=== PATIENT | male | born 1950 | race Caucasian/White ===

== ENCOUNTER → 2017-01-28 | Outpatient (CLI) | payer MEDICARE ==
--- NOTE | 2017-01-28 17:44 | US ---
EXAMINATION TYPE: US thyroid st tissue head/neck DATE OF EXAM: 01/28/2017 5:04 PM COMPARISON: 04/13/2016 CLINICAL HISTORY: E04.9 Nontoxic goiter unspecified. Follow up thyroid nodules GLAND SIZE: Right Lobe: 4.9 x 2.1 x 1.8 cm Overall Parenchyma: homogenous Left Lobe: 4.5 x 1.9 x 1.6 cm Overall Parenchyma: homogeneous Isthmus Thickness: 0.4 cm NODULES RIGHT: # of nodules measured on right: 2 1. 0.7 X 0.5 x 0.6 cm hypoechoic solid nodule at the mid pole with poorly defined margins. This nod ule is wider than tall and shows no intranodular vascularity. Prior size: 0.6 x 0.6 x 0.4 cm 2. 0.5 X 0.3 x 0.3 cm hypoechoic mixed nodule at the mid pole with well-defined margins. This nodule is wider than tall and shows no intranodular vascularity. Prior size: no previous LEFT: # of nodules measured on left: 2 1. 1.0 X 0.5 x 0.7 cm hypoechoic mixed nodule at the upper pole with well-defined margins. This nod ule is wider than tall and shows no intranodular vascularity. Prior size: 0.6 x 0.6 x 0.5 cm 2. 0.5 X 0.4 x 0.4 cm hypoechoic mixed nodule at the upper pole with well-defined margins. This nodu le is wider than tall and shows no intranodular vascularity. Prior size: 0.5 x 0.4 x 0.4 cm ISTHMUS: # of nodules measured in the isthmus: 1 1. 0.5 X 0.3 x 0.4 cm hypoechoic mixed nodule at the mid pole with well-defined margins. This nodul e is wider than tall and shows no intranodular vascularity. Prior size: no previous Multiple bilateral thyroid nodules with largest described above, bilateral neck scanned, no evidence of lymphadenopathy. IMPRESSION: Bilateral findings. No dominant thyroid mass. There is overall no adverse change compared to old exam .
== END | disposition home or self-care (01) ==
LOC: RADUSWWP 16:40
PROVIDERS: ATTEND Family Medicine
DX: E04.9 Nontoxic goiter, unspecified (principal)
CPT/HCPCS: 76536

== ENCOUNTER → 2017-07-28 | Outpatient (CLI) | payer MEDICARE ==
--- NOTE | 2017-07-28 17:20 | US ---
EXAMINATION TYPE: US thyroid st tissue head/neck DATE OF EXAM: 07/28/2017 COMPARISON: 01/28/2017 CLINICAL HISTORY: E04.9 Nontoxic goiter. GLAND SIZE: Right Lobe: 4.7x 2.0 x 2.0 cm Overall Parenchyma: homogenous Left Lobe: 5.0 x 2.0 x 2.0 cm Overall Parenchyma: homogeneous Isthmus Thickness: 0.7 cm NODULES RIGHT: # of nodules measured on right: 2 1. 0.7 X 0.5 x 0.6 cm hypoechoic solid nodule at the mid pole with poorly defined margins. This no dule is taller than wide and shows peripheral vascularity. Prior size: 0.7 x 0.5 x 0.6 cm 2. 0.4 X 0.3 x 0.2 cm hypoechoic mixed nodule at the mid medial pole with well-defined margins; inte rrupted peripheral calcification. This nodule is wider than tall and shows no intranodular vasculari ty. Prior size: 0.5 x 0.3 x 0.3 cm LEFT: # of nodules measured on left: 3 1. 0.8 X 0.7 x 0.6 cm hypoechoic mixed nodule at the upper pole with well-defined margins; present with microcalcifications. This nodule is wider than tall and shows no intranodular vascularity. Prior size: 1.0 x 0.5 x 0.7 cm 2. 0.4 X 0.4 x 0.4 cm hypoechoic cystic nodule at the upper mid pole with well-defined margins. Thi s nodule is wider as is tall and shows no intranodular vascularity. Prior size: 0.5 x 0.4 x 0.4 cm 3. 0.4 X 0.4 x 0.3 cm hypoechoic mixed nodule at the mid medial pole with poorly defined margins; pr esent with microcalcifications. This nodule is wider than tall and shows no intranodular vascularity . Prior size: not seen ISTHMUS: # of nodules measured in the isthmus: 1 1. 0.5 X 0.4 x 0.3 cm hypoechoic mixed nodule at the lower isthmus with well-defined margins. This nodule is wider than tall and shows no intranodular vascularity. Prior size: 0.5 x 0.3 x 0.4 cm Bilateral neck scanned, no evidence of lymphadenopathy. IMPRESSION: Enlarged thyroid gland with multiple findings consistent with multiply nodular goiter. No dominant th yroid mass. No adverse change compared to old exam.
== END | disposition home or self-care (01) ==
LOC: RADUSWWP 16:06
PROVIDERS: ATTEND Family Medicine
DX: E04.9 Nontoxic goiter, unspecified (principal)
CPT/HCPCS: 76536

== ENCOUNTER → 2018-02-02 | Outpatient (CLI) | payer MEDICARE ==
--- NOTE | 2018-02-02 10:22 | US ---
EXAMINATION TYPE: US thyroid st tissue head/neck DATE OF EXAM: 02/02/2018 COMPARISON: Prior thyroid ultrasound July 28, 2017 CLINICAL HISTORY: Nontoxic Goiter E04.9. F/U nodules GLAND SIZE: Right Lobe: 4.8 x 2.5 x 2.2 cm Overall Parenchyma: homogenous Left Lobe: 5.0 x 2.0 x 1.7 cm Overall Parenchyma: homogeneous Isthmus Thickness: 0.5 cm NODULES RIGHT: # of nodules measured on right: 2 1. 0.6 X 0.5 x 0.6 cm isoechoic solid nodule at the mid pole with poorly defined margins; This nod ule is wider than tall and shows intranodular vascularity. Prior size: 0.7 x 0.5 x 0.6 cm 2. 0.4 X 0.3 x 0.4 cm hypoechoic mixed nodule at the mid pole with well-defined margins; This nodule is wider than tall and shows no intranodular vascularity. Prior size: 0.4 x 0.3 x 0.2 cm LEFT: # of nodules measured on left: 2 1. 0.9 X 0.6 x 0.7 cm hypoechoic mixed nodule at the upper pole with well-defined margins; This nod ule is wider than tall and shows intranodular vascularity. Prior size: 0.8 x 0.6 x 0.7 cm 2. 0.6 X 0.4 x 0.6 cm hypoechoic cystic nodule at the mid pole with well-defined margins; This nodu le is wider than tall and shows no intranodular vascularity. Prior size: 0.4 x 0.4 x 0.4 cm ISTHMUS: # of nodules measured in the isthmus: 1 1. 0.4 X 0.4 x 0.4 cm hypoechoic nodule with well-defined margins; This nodule is wider than tall a nd shows no intranodular vascularity. Prior size: 0.5 x 0.4 x 0.3 cm Bilateral neck scanned, no evidence of lymphadenopathy. Stable nodules bilaterally. Homogeneous normal-sized thyroid with scattered small nodules redemonstrated. No significant change i n identified nodules. No new suspicious nodules seen. IMPRESSION: Overall stable findings.
== END | disposition home or self-care (01) ==
LOC: RADUSWWP 09:30
PROVIDERS: ATTEND Family Medicine
DX: E04.9 Nontoxic goiter, unspecified (principal)
CPT/HCPCS: 76536

== ENCOUNTER → 2019-01-24 | Outpatient (CLI) | payer MEDICARE ==
--- NOTE | 2019-01-24 09:20 | US ---
EXAMINATION TYPE: US thyroid st tissue head/neck DATE OF EXAM: 01/24/2019 COMPARISON: US 02/02/2018 CLINICAL HISTORY: 68-year-old male E04.9 Nontoxic Goiter. Follow up TECHNIQUE: Multiple sonographic images of the thyroid gland are obtained. FINDINGS: GLAND SIZE: Right Lobe: 5.4 x 2.4 x 1.8 cm Overall Parenchyma: heterogenous Left Lobe: 5.1 x 2.1 x 1.7 cm Overall Parenchyma: heterogeneous Isthmus Thickness: 0.8 cm NODULES RIGHT: # of nodules measured on right: 1 1. 0.5 X 0.6 x 0.6 cm isoechoic solid nodule at the mid pole with poorly defined margins; . This n odule is wider than tall and shows intranodular vascularity. Prior size: 0.6 X 0.5 x 0.6 cm, stable LEFT: # of nodules measured on left: 2 1. 1.0 x 0.7x 1.0cm cystic nodule with internal nodularity at the upper pole with well-defined terri ns. This nodule is wider than tall and shows intranodular vascularity. Prior size: 0.9 X 0.6 x 0.7 cm, slightly larger now. 2. 0.7 x 0.3 x 0.4 cm hypoechoic cystic nodule at the mid pole with well-defined margins. This nodul e is wider than tall and shows no intranodular vascularity. Prior size: 0.6 X 0.4 x 0.6 cm, not significantly changed. ISTHMUS: # of nodules measured in the isthmus: 1 1. 0.5 X 0.4 x 0.4 cm hypoechoic cystic nodule at the lower pole with well-defined margins; . This nodule is wider than tall and shows no intranodular vascularity. Prior size: 0.4 X 0.4 x 0.4 cm , not significantly changed. Bilateral neck scanned, no evidence of lymphadenopathy. IMPRESSION: 1. Multinodular goiter. 2. The 10 x 10 mm complex nodule in the left upper lobe is cystic with an internal area of nodularity and slightly increased from 9 x 7 mm, previously. Continued follow-up recommended. If continued enla rgement, FNA can be performed. 3. Other nodules measuring up to 7 mm are not significantly changed.
== END | disposition home or self-care (01) ==
LOC: RADUSWWP 08:11
PROVIDERS: ATTEND Family Medicine
DX: E04.2 Nontoxic multinodular goiter (principal)
CPT/HCPCS: 76536

== ENCOUNTER → 2019-08-14 | Outpatient (CLI) | payer MEDICARE ==
--- NOTE | 2019-08-14 22:34 | US ---
EXAMINATION TYPE: US thyroid st tissue head/neck DATE OF EXAM: 08/14/2019 COMPARISON: Thyroid ultrasound February 05, 2019 CLINICAL HISTORY: E04.9 Nontoxic goiter, unspecified. Thyroid nodule GLAND SIZE: Right Lobe: 5.6 x 1.6 x 2.0 cm Overall Parenchyma: homogenous Left Lobe: 4.3 x 1.8 x 1.6 cm Overall Parenchyma: homogeneous Isthmus Thickness: .3 cm NODULES RIGHT: # of nodules measured on right: 1 1. .6 X .4 x .5 cm isoechoic solid nodule at the mid pole with well-defined margins; . This nodule is wider than tall and shows intranodular vascularity. Prior size: .5 x .6 x .6 cm LEFT: # of nodules measured on left: 2 1. .3 X .5 x .6 cm mixed nodule at the mid pole with well-defined margins; . This nodule is wider than tall and shows no intranodular vascularity. Prior size: .6 x .5 x .6 cm 2. .4 X .4 x .5 cm cystic nodule at the mid to upper pole with well-defined margins; . This nodule is wider than tall and shows intranodular vascularity. Prior size: 1.0 x .7 x 1.0 cm ISTHMUS: # of nodules measured in the isthmus: 0 Bilateral neck scanned, no evidence of lymphadenopathy. Homogeneous normal-sized thyroid with stable scattered small subcentimeter nodules bilaterally. IMPRESSION: Overall stable findings, no new greater than 1 cm or enlarging nodules identified.
== END | disposition home or self-care (01) ==
LOC: RADUSMAIN 17:50
PROVIDERS: ATTEND Family Medicine
DX: E04.9 Nontoxic goiter, unspecified (principal)
CPT/HCPCS: 76536

== ENCOUNTER → 2019-11-27 | Outpatient (CLI) | payer MEDICARE | END | disposition home or self-care (01) | LOC: LABPAT 07:06 | PROVIDERS: ATTEND Orthopaedic Surgery Sports Medicine | DX: Z53.9 Procedure and treatment not carried out, unspecified reason (principal) ==

== ENCOUNTER → 2019-11-27 | Outpatient (CLI) | payer MEDICARE ==
[2019-11-27 07:44] LABS: HCT 46.7 % (39.0-53.0); HGB 15.5 gm/dL (13.0-17.5); MCH 30.2 pg (25.0-35.0); MCHC 33.3 g/dL (31.0-37.0); MCV 90.8 fL (80.0-100.0); Mean Platelet Volume 7.5; Platelet Count 246 k/uL (150-450); RBC 5.15 m/uL (4.30-5.90); RDW 12.6 % (11.5-15.5)
[2019-11-27 07:54] LABS: INR 1.1 (<1.2); Prothrombin Time 11.1 sec (9.0-12.0)
[2019-11-27 08:25] LABS: Appearance,Urine Clear (Clear); Bilirubin,Urine Negative (Negative); Blood,Urine Negative (Negative); Color,Urine Yellow; Glucose,Urine (UA) Negative (Negative); Ketones,Urine Negative (Negative); Leukocyte Esterase,Urine Negative (Negative); Nitrite,Urine Negative (Negative); Protein,Urine Negative (Negative); Specific Gravity,Urine 1.012 (1.001-1.035); Urobilinogen,Urine <2.0 mg/dL (<2.0)
[2019-11-27 11:00] LABS: African American GFR (CKD) 70.6 (60.0-200.0); Albumin 4.1 g/dL (3.80-4.90); Albumin/Globulin Ratio 1.58 (1.60-3.17); Anion Gap 7.7 mmol/L (4.00-12.00); BUN/Creat Ratio 12.5 Ratio (12.00-20.00); Calcium 9.3 mg/dL (8.7-10.3); Carbon Dioxide 28.3 mmol/L (21.6-31.8); Globulin 2.6 g/dL (1.6-3.3); Non-African American GFR(CKD) 60.9 (60.0-200.0); Potassium 4.1 mmol/L (3.5-5.5); Total Bilirubin 0.9 mg/dL (0.3-1.2); Total Protein 6.7 g/dL (6.2-8.2)
== END | disposition home or self-care (01) ==
LOC: LABWHC1 07:09
PROVIDERS: ATTEND Family Medicine
DX: N40.1 Benign prostatic hyperplasia with lower urinary tract symptoms (principal); E55.9 Vitamin D deficiency, unspecified
CPT/HCPCS: 36415; 80053; 81003; 82306; 84153; 85027; 85610; 85730; 87070; 93005

== ENCOUNTER → 2020-02-15 | Outpatient (CLI) | payer MEDICARE ==
[2020-02-15 09:07] LABS: Appearance,Urine Clear (Clear); Bilirubin,Urine Negative (Negative); Blood,Urine Negative (Negative); Color,Urine Yellow; Glucose,Urine (UA) Negative (Negative); HCT 44.9 % (39.0-53.0); HGB 15.5 gm/dL (13.0-17.5); Ketones,Urine Negative (Negative); Leukocyte Esterase,Urine Negative (Negative); MCH 31.2 pg (25.0-35.0); MCHC 34.6 g/dL (31.0-37.0); MCV 90.1 fL (80.0-100.0); Mean Platelet Volume 7.6; Nitrite,Urine Negative (Negative); Platelet Count 237 k/uL (150-450); Protein,Urine Negative (Negative); RBC 4.98 m/uL (4.30-5.90); RDW 13.1 % (11.5-15.5); Specific Gravity,Urine 1.011 (1.001-1.035); Urobilinogen,Urine <2.0 mg/dL (<2.0); WBC 7.3 k/uL (3.8-10.6)
[2020-02-15 09:37] LABS: INR 1.1 (<1.2); Partial Thromboplastin Time 26.4 sec (22.0-30.0); Prothrombin Time 11.3 sec (9.0-12.0)
[2020-02-15 16:04] LABS: African American GFR (CKD) 78.4 (60.0-200.0); Albumin/Globulin Ratio 1.48 (1.60-3.17); Anion Gap 5.7 mmol/L (4.00-12.00); BUN/Creat Ratio 15.45 Ratio (12.00-20.00); Calcium 9.3 mg/dL (8.7-10.3); Carbon Dioxide 26.3 mmol/L (21.6-31.8); Globulin 2.7 g/dL (1.6-3.3); Non-African American GFR(CKD) 67.7 (60.0-200.0); Potassium 4.1 mmol/L (3.5-5.5); Total Bilirubin 0.7 mg/dL (0.3-1.2); Total Protein 6.7 g/dL (6.2-8.2)
== END | disposition home or self-care (01) ==
LOC: LABWHC1 08:17
PROVIDERS: ATTEND Orthopaedic Surgery Sports Medicine
DX: Z01.818 Encounter for other preprocedural examination (principal); Z01.812 Encounter for preprocedural laboratory examination; U07.1 COVID-19
CPT/HCPCS: 80053; 85027; 85610; 85730; 81003; 87070; 36415; U0003

== ENCOUNTER 2020-02-20 11:13 | Day surgery (SDC) | payer MEDICARE ==
[2020-02-19 08:45] VITALS: BMI 28.5
[~2020-02-20 11:13] MED LIST: ACETAMINOPHEN TAB 500 MG TAB PO ONE; DEXAMETHASONE SOD PHOSPHATE 10 MG/ML 1 ML VIAL IV ONE; GABAPENTIN 300 MG CAP PO ONE; LACTATED RINGERS 1,000 ML IV SCH; LIDOCAINE 1% (10MG/ML) FOR IV START INTRADERMA PRN; MELOXICAM 7.5 MG TAB PO ONE; MIDAZOLAM 2 MG/2 ML VIAL IV PRN; ONDANSETRON 4 MG/2 ML VIAL IVP ONE; ROPIVACAINE 246.25 MG, EPINEPHrine 0.5 MG, KETOROLAC 30 MG, cloNIDine HCL/PF 80 MCG, WA... MISCELLANE ONE; TRANEXAMIC ACID 1,000 MG in SODIUM CHLORIDE 0.9% 100 ML IVPB ONE
[2020-02-20] MEDS ORDERED: NEOSTIGMINE 1 MG/ML 10 ML VIAL ONE (12:30)
[2020-02-20] MEDS ORDERED: SUCCINYLCHOLINE CHLORIDE 100 MG/5 ML SYR IV ONE (12:30)
[2020-02-20] MEDS ORDERED: PROPOFOL 10 MG/ML 20 ML VIAL IV ONE (12:30)
[2020-02-20] MEDS ORDERED: ROCURONIUM BROMIDE 10 MG/ML 5 ML VIAL IV ONE (12:30)
[2020-02-20] MEDS ORDERED: fentaNYL (PF) 50 MCG/ML 2 ML AMP ONE (12:30)
[2020-02-20] MEDS ORDERED: TRANEXAMIC ACID 1,000 MG/10 ML VIAL ONE (12:30)
[2020-02-20] MEDS ORDERED: GLYCOPYRROLATE 0.2 MG/ML 2 ML VIAL ONE (12:30)
[2020-02-20] MEDS ORDERED: SODIUM CHLORIDE 0.9% 100 ML BAG ONE (12:30)
[2020-02-20] MEDS ORDERED: LIDOCAINE 1% INJ 10MG/ML (20 ML MDV) ONE (12:30)
[2020-02-20] MEDS ORDERED: .MORPHINE SULFATE (INJ) 10 MG/ML SYRINGE ONE (12:30)
[2020-02-20] MEDS ORDERED: MIDAZOLAM 2 MG/2 ML VIAL ONE (12:30)
[2020-02-20] MEDS ORDERED: ROPIVACAINE 0.2%-NS ON-Q PUMP 1,090 MG, EMPTY PAIN BALL 1 EACH MISCELLANE PRN (12:37)
--- NOTE | 2020-02-20 12:37 | P.ANPRN ---
Procedure Note - Anesthesia - Nerve Block Performed Left Adductor Canal Date of Procedure: 02/20/20 Procedure Start Time: 12:10 Procedure Stop Time: 12:24 Location of Patient: PreOp Indication: Acute Post-Operative Pain, Requested by Surgeon (Dr Manning) Sedation Type: Sedate with meaningful contact maintained Preparation: Sterile Prep, Sterile Dressing Position: Supine Catheter: Indwelling Needle Types: Pajunk Needle Gauge: 21 Ultrasound used to visualize needle placement: Yes Ultrasound used to observe medication spread: Yes Injectate: 0.5% Ropivacaine (see comment for volume) (20cc) Blood Aspirated: No Pain Paresthesia on Injection Noted: No Resistance on Injection: Normal Image Stored and Saved: Yes Events: Uneventful and Well Tolerated
[2020-02-20] MEDS ORDERED: ceFAZolin 3,000 MG in SODIUM CHLORIDE 0.9% IRRIGATIO 3,000 ML IRRIGATION ONE (12:43)
[2020-02-20] MEDS ORDERED: LACTATED RINGERS 1,000 ML IV ONE ×2 (13:54→15:46)
[2020-02-20] MEDS ORDERED: MAGNESIUM HYDROXIDE 2,400 MG/10 ML CUP PO PRN (14:45)
[2020-02-20] MEDS ORDERED: BISACODYL 10 MG SUPP RECTAL PRN (14:45)
[2020-02-20] MEDS ORDERED: ONDANSETRON 4 MG/2 ML VIAL IVP PRN (14:45)
[2020-02-20] MEDS ORDERED: NA PHOS,M-B/NA PHOS,DI-BA 133 ML ENEMA RECTAL PRN (14:45)
[2020-02-20] MEDS ORDERED: traMADol 50 MG TAB PO PRN (14:45)
[2020-02-20] MEDS ORDERED: TEMAZEPAM 15 MG CAP PO PRN (14:45)
[2020-02-20] MEDS ORDERED: HYDROmorphone 0.5 MG/0.5 ML SYRINGE IVP PRN ×3 (14:45)
[2020-02-20] MEDS ORDERED: HYDROcodone/APAP 5-325MG 1 EACH TAB PO PRN (14:45)
[2020-02-20] MEDS ORDERED: DIAZEPAM 5 MG TAB PO PRN (14:45)
[2020-02-20] MEDS ORDERED: ACETAMINOPHEN TAB 325 MG TAB PO PRN (14:45)
[2020-02-20] MEDS ORDERED: NALOXONE 0.4 MG/ML 1 ML VIAL IV PRN (14:45)
[2020-02-20] MEDS ORDERED: HYDROcodone/APAP 10-325MG 1 EACH TAB PO PRN (14:45)
[2020-02-20] MEDS: HYDROmorphone 0.5 MG/0.5 ML SYRINGE IVP PRN ×2 (14:51→14:59)
--- NOTE | 2020-02-20 15:14 | XR ---
EXAMINATION TYPE: XR knee limited LT DATE OF EXAM: 02/20/2020 CLINICAL HISTORY: Left knee pain and arthritis status post total knee replacement. TECHNIQUE: Portable AP and crosstable lateral views of the left knee are obtained immediately postop eratively. COMPARISON: None FINDINGS: [place] osseous structures are somewhat demineralized. Metallic hardware from total left kne e arthroplasty is seen and appears satisfactory in alignment and position. There is evidence of rece nt surgery with diffuse subcutaneous gas and soft tissue swelling noted. IMPRESSION: METALLIC HARDWARE FROM TOTAL LEFT KNEE ARTHROPLASTY IS SATISFACTORY IN ALIGNMENT.
--- NOTE | 2020-02-20 16:01 | OP ---
OPERATIVE REPORT DATE OF PROCEDURE: 02/20/2020 SURGEON: Sammy Manning MD DEPUTY FIRE CHIEF: Latrell BASSETT. PREOPERATIVE DIAGNOSIS: Left knee osteoarthrosis. POSTOPERATIVE DIAGNOSIS: Left knee osteoarthrosis. OPERATION: Left total knee arthroplasty. ANESTHESIA: General endotracheal. ESTIMATED BLOOD LOSS: 100 mL. TOURNIQUET TIME: 51 minutes at 250 mmHg. COMPLICATIONS: None apparent. DRAINS: None. DISPOSITION: Post-Anesthesia Care Unit. INDICATIONS: Chandler is a very pleasant 69-year-old male with longstanding history of left knee pain. History and physical examination are consistent with advanced left knee osteoarthrosis. He has been through significant nonoperative management up to this point. Further treatment options were discussed. He decided to go forward with left total knee arthroplasty. The risks of the procedure were discussed with him in detail. These risks include but are not limited to risk of infection, nerve damage, bleeding, pain, and a small risk of deep vein thrombosis which could lead to fatal pulmonary embolism. There is also a risk of loosening of the implant which could require revision operation. The patient understands these risks. All of his questions were answered to his satisfaction. Appropriate informed consent was obtained. DESCRIPTION OF PROCEDURE: The patient was identified in the preoperative holding area. Surgical site was marked by both the patient and myself. He was given 2 grams of Ancef IV for prophylactic purposes. He was then transferred to the operative suite. He was placed supine on the operating room table. A spinal anesthetic was then administered and dosed per the anesthesia department without apparent complication. Examination under anesthesia was then performed. The patient was 5 degrees shy of full extension. He had 100 degrees of flexion, and the medial collateral ligament, lateral collateral ligament and posterior cruciate ligaments were stable. Tourniquet was then placed high on the left upper thigh, well padded in preparation for surgery. The patient's left lower extremity was then prepped and draped in the usual sterile fashion. A standard surgical pause was then undertaken to ensure that we were operating on the correct site and that appropriate preoperative antibiotics had been given. All staff in the room were in agreement and we proceeded. The outlines of the patella were marked with a surgical pen. A planned 12 cm incision centered over the patella was marked with a surgical pen. The leg was then exsanguinated with an Esmarch dressing. The knee was then flexed and the tourniquet was inflated to 250 mmHg. The total tourniquet time for the procedure was 51 minutes. Incision was then made with a 10-blade scalpel. Dissection was carried down sharply to the overlying fascia. Great care was taken to minimize the skin flaps. The knee was then exposed using a standard medial parapatellar approach. A small cuff of quadriceps tendon was then left for suturing. He was in a bit of varus preoperatively. A standard medial release was then made. Superficial medial collateral ligament was dissected off of the bone and around to the posterior aspect of the proximal tibia. The medial meniscus was then excised as well. The lateral meniscus was also released anteriorly. The leg was then externally rotated. The patella was everted. The knee was flexed. Retractors were then placed to protect the collateral ligaments. I then proceeded to remove the infrapatellar fat pad. This was excised sharply tangentially with the fibers of the patellar tendon. I then proceeded to remove the peripheral osteophytes. This was done with a rongeur. I then proceeded with the distal femoral resection. He did have a small flexion contracture. A planned 11 mm resection was then done. The femoral canal was then entered in the midline of the femur approximately 10 mm anterior to the origin of the posterior cruciate ligament. The nawaf was then advanced down the center of the femur and placed intramedullary. Based on the preoperative radiographs, the angle between the anatomic and mechanical axis of the femur was approximately 4-5 degrees. The valgus angle of the distal femoral cutting guide was then set at 4 degrees for the left knee. The distal femoral cutting guide was then advanced over the intramedullary nawaf. This was seated firmly against the femur. I then, as mentioned, planned to take 11 mm off the distal femur. The cutting block was then secured onto the femur with pins. The jig was removed and the distal femoral cut was made through the slot of the block. The pins were then removed and the distal femoral cutting block was removed. The accuracy of the distal femoral cuts was checked with 2 flat bars. I then proceeded with femoral sizing. The posterior referencing sizing guide was held firmly against the resected distal surface of the femur. The posterior condyles were resting on the posterior plane of the guide. The sizing stylus was then placed onto the anterior femur. The size was measured as a size 11. I then assessed for femoral rotation. The plan was for 3 degrees of external rotation. Three degrees of external rotation was placed onto the jig. These holes were then marked. I then confirmed the rotation by 3 separate methods. This was done using the epicondylar axis as well as Whitesides line and posterior referencing. It was deemed that the external rotation was proper. I then went forward with placing the femoral cutting block. This was placed over the previously placed pin holes. The Scott wing was then placed onto the anterior slots to ensure that we would not notch the anterior femur with the anterior femoral cut. I then proceeded with the anterior femoral cut. This was flush with the anterior cortex of the femur. The posterior cuts were then made followed by the anterior chamfer cut, and then the posterior chamfer cut. The cutting block was then removed. Throughout the resection, the collateral ligaments were protected with retractors. I then placed a trial size 11 femur. It fit very nicely medial to lateral and fit flush with the distal end of the femur. The drill holes were then made. I then proceeded with the tibial cut. I planned for a cruciate-retaining knee. The guide was placed and set for varus, valgus and for slope. The height was set for an approximate 2 mm resection from the medial tibial plateau, which was the lower side. I was happy with the alignment and the amount of resection. The cutting block was then pinned to the proximal tibia. The alignment nawaf was removed and the proximal tibia was resected with a reciprocating saw. Again this was done with retractors protecting the collateral ligaments as well as the posterior cruciate ligament. I then proceeded to evaluate the flexion and extension gaps. A 10 mm block was then placed. The flexion and extension gaps were equal. I then proceeded with the resection of the posterior osteophytes. He had very minimal posterior osteophytes. This was done using a curved osteotome. This resected the posterior osteophytes, and posterior capsule stripping was done off the posterior aspect of the femur at this time. The osteophytes were then removed. I then proceeded with resection of the patella. The thickness of the patella was measured using the caliper. The thickness was 25 mm. The thickness of the anticipated patellar dome was taken into account. The resection was then performed and confirmed to be equal in 4 quadrants using a caliper. Approximately 14 mm of bone remained after the resection. A 35 x 9 mm standard patellar trial was then placed. The holes were drilled and the trial was then placed. I then proceeded with sizing the tibial plate. A size G tibial plate fit very nicely. I then placed the trial femur and the tibial tray and the patellar button. A 10 mm trial tibial insert was also placed. The components fit very nicely. He had full extension and flexion. The extension and flexion gaps were equal and stable to both varus and valgus stress. The patella tracked appropriately. Tibial tray rotation was marked with a Bovie. This was externally rotated properly. I then proceeded with tibial preparation. I first drilled the femoral holes and removed the femoral component. The tibial tray was then set for proper external rotation as well as mediolateral placement onto the tibia. It was then pinned into place. I then proceeded with punching the keel. I then decided to proceed with cementing of all of our components. The knee was thoroughly irrigated with sterile saline solution via pulse lavage. The lateral geniculate artery was identified and cauterized. All blood was removed from the bone of the tibia, femur and patella with pulse lavage. I then proceeded with cementing. Two packs of antibiotic bone cement were prepared on the back table by the surgical forceps fabricator. I then proceeded with cementing the tibia first. The cement was impacted into the keel as well as deeply seated into the bone. A second coat of cement was then placed. The tibia was then impacted into place. Excess cement was removed with Vaughn's and jokers. I then proceeded with cementing of the femoral component. The femoral component was also cemented using standard technique. Excess cement was removed. A 10 mm trial insert was then placed into the knee. It was brought into full extension with a constant axial load placed until the cement had hardened. The patellar component was then cemented. This was held firmly with a compressive device until the cement had dried. When the cement had dried, the knee was taken out of extension. All excess cement was removed from around the prosthesis. I then trialed the knee with a 10 mm insert. The flexion and extension gaps were appropriate. The knee was stable. It came into full extension. I decided to go forward with a 10 mm cross-linked cruciate-retaining tibial insert. Polyethylene was then placed onto the tibial tray and locked into place. The knee was then reduced. The knee was again further irrigated with sterile saline solution with antibiotic added. The tourniquet was then deflated. Total tourniquet time for the procedure was 51 minutes at 250 mmHg. The final components were a Elida Persona size 11 cruciate-retaining femoral component, a size G tibial tray, a 10 mm medial-congruent cruciate-retaining polyethylene insert, and a 35 x 9 mm patella. I then proceeded with closure. Again the knee was thoroughly irrigated. The quadriceps tendon and the medial retinaculum were reapproximated with #2 Ethibond suture. The extensor mechanism was then closed with a running #2 Quill suture. Subcutaneous tissues were then closed with 2-0 Vicryl interrupted suture. The skin was closed with a running 3-0 Quill suture. Dermabond was applied to the incision. Sterile compressive dressings were then applied. All sponge and needle counts were deemed correct prior to closure. The patient tolerated the procedure without apparent complication. He was transferred to the recovery room in stable condition. MMODL / IJN: [id number] /
[2020-02-20] MEDS ORDERED: SENNOSIDES-DOCUSATE SODIUM 1 EACH TAB PO SCH (21:00)
[2020-02-20] MEDS ORDERED: TAMSULOSIN 0.4 MG CAP.ER.24H PO SCH (22:28)
[2020-02-20] MEDS: LACTATED RINGERS 1,000 ML IV SCH (23:47)
[2020-02-21] MEDS: LACTATED RINGERS 1,000 ML IV SCH (05:19)
[2020-02-21 07:42] VITALS: BP 122/72; PULSE 60; RESP 16; TEMP 98
[2020-02-21 08:38] LABS: Basophils % (A) 0 %; Eosinophils % (A) 0 %; HCT 40.1 % (39.0-53.0); HGB 13.4 gm/dL (13.0-17.5); Lymphocytes # (A) 1.5 k/uL (1.0-4.8); Lymphocytes % (A) 12 %; MCH 30.6 pg (25.0-35.0); MCHC 33.3 g/dL (31.0-37.0); MCV 91.8 fL (80.0-100.0); Mean Platelet Volume 7.4; Monocytes % (A) 8 %; Neutrophils # (A) 10.1 k/uL (1.3-7.7); Neutrophils % (A) 78 %; Platelet Count 199 k/uL (150-450); RBC 4.37 m/uL (4.30-5.90); RDW 13.1 % (11.5-15.5); WBC 12.9 k/uL (3.8-10.6)
[2020-02-21] MEDS ORDERED: CHOLECALCIFEROL 1,000 UNIT TAB PO SCH (09:00)
[2020-02-21] MEDS ORDERED: NON FORMULARY DRUG (Fish Oil/Dha/Epa [Fish Oil 1,200 Mg Fish Oil] 1 EACH) PO SCH (09:00)
[2020-02-21] MEDS ORDERED: RIVAROXABAN 20 MG TAB PO SCH (09:00)
[2020-02-21] MEDS ORDERED: MULTIVITAMINS, THERA 1 EACH TAB PO SCH (09:00)
--- NOTE | 2020-02-21 11:55 | P.DS ---
Providers Expected date of discharge: 02/21/20 Attending physician: Sammy Manning Consults: 02/20/20 14:45 Consult Physician Routine Consulting Provider: Rusty Novoa Consult Reason/Comments: post op medical management Do you want consulting provider notified?: Yes Primary care physician: Manuel Becerra - Discharge Diagnosis(es) (1) Status post total knee replacement Patient was admitted to the OR on 02/21/2020 to undergo a left total knee arthroplasty. He had failed conservative measures as an outpatient and desired to proceed with elective surgery after given informed consent. He underwent the above procedure which he tolerated well without complication. Postoperative hospital course has remained without complication. On day of discharge he is afebrile, vital signs stable, labs within acceptable ranges, tolerating by mouth meds and diet, voiding without difficulty, positive flatus, denies abdominal pain or calf pain, pain is controlled on oral pain medication and has no new co mplaints. Wound is benign, neurovascular status is intact, calf is soft and nontender, abdomen soft and nontender. Review of systems is negative for numbness, tingling, fever, chills, chest pain, shortness of breath, nausea, vomiting, dizziness, headaches, slurred speech or other Current Visit: Yes Status: Acute Priority: Medium Procedures: Left TKA Patient Condition at Discharge: Good Plan - Discharge Summary Discharge Rx Participant: No New Discharge Prescriptions: Continue Tamsulosin [Flomax] 0.4 mg PO 1700 Rivaroxaban [Xarelto] 20 mg PO DAILY Multivitamins, Thera [Multivitamin (formulary)] 1 tab PO DAILY Cholecalciferol [Vitamin D3 (25 Mcg = 1000 Iu)] 3,000 unit PO DAILY Fish Oil/Dha/Epa [Fish Oil 1,200 mg Fish Oil] 1 each PO DAILY Discharge Medication List Cholecalciferol [Vitamin D3 (25 Mcg = 1000 Iu)] 3,000 unit PO DAILY 02/19/20 [History] Fish Oil/Dha/Epa [Fish Oil 1,200 mg Fish Oil] 1 each PO DAILY 02/19/20 [History] Multivitamins, Thera [Multivitamin (formulary)] 1 tab PO DAILY 02/19/20 [History] Rivaroxaban [Xarelto] 20 mg PO DAILY 02/19/20 [History] Tamsulosin [Flomax] 0.4 mg PO 1700 02/19/20 [History] Follow up [facility]ment[facility]
--- NOTE | 2020-02-21 22:36 | P.CONS ---
History of Present Illness - Reason for Consult Consult date: 02/21/20 Medical management Requesting physician: Sammy Manning - Chief Complaint Left knee surgery - History of Present Illness Consultation: This is a pleasant 69-year-old patient of Dr. Becerra. Chronic stable medical conditions include chronic pulmonary embolism for which patient is on xarelto, BPH, osteoarthritis. Patient underwent left total knee arthroplasty yesterday. Pain is controlled. Her nausea vomiting. No chest pain or shortness of breath. Denies any cardiac history. This morning he had breakfast. Did work with therapy. Feeling well otherwise. Xarelto has been resumed. Review of systems: GEN.: None EYES: None HEENT: None NECK: None RESPIRATORY: None CARDIOVASCULAR: None GASTROINTESTINAL: None GENITOURINARY: None MUSCULOSKELETAL: Joint pains LYMPHATICS: None HEMATOLOGICAL: None PSYCHIATRY: None NEUROLOGICAL: None Past medical history to include: Osteoarthritis, BPH, chronic pulmonary embolism Social history: , retired schoolteacher. Alcohol occasionally. Family history: Reviewed, noncontributory to presentation Physical examination: VITAL SIGNS: 98, 60, 16, 120-72, 94% room air GENERAL: 28.6, BMI-sitting up in bed, comfortable. EYES: Pupils equal. Conjunctiva normal. HEENT: External appearance of nose and ears normal, oral cavity grossly normal. NECK: JVD not raised; masses not palpable. HEART: First and second heart sounds are normal; no edema. LUNGS: Respiratory rate normal; clear to auscultation. ABDOMEN: Soft, nontender, liver spleen not palpable, no masses palpable. PSYCH: Alert and oriented x3; mood and affect normal. MUSCULOSKELETAL: Evidence of OA in the hands, dressing over the left knee NEUROLOGICAL: Cranial nerves grossly intact; no facial asymmetry, power and sensation grossly intact. LYMPHATICS: No lymph nodes palpable in the axilla and neck INVESTIGATIONS, reviewed in the clinical context: White count 12.9 hemoglobin 13.4 Assessment: -Left total knee arthroplasty -Chronic pulmonary embolism -BPH -Primary osteoarthritis -Mild leukocytosis likely reactive from surgery. No clinical evidence of infection Plan: Home medications resumed. Also patient's back on xarelto. Care was discussed with the patient. Questions were answered. DVT prophylaxis as per Dr. Manning Thank you Dr. Manning Past Medical History Past Medical History: Cancer, Hearing Disorder / Deafness, Osteoarthritis (OA), Pulmonary Embolus (PE), Thyroid Disorder Additional Past Medical History / Comment(s): Heart murmur-no tx. for, Pulmonary embolus x2, Thyroid. nodule, Skin CA 2007 & 2011 History of Any Multi-Drug Resistant Organisms: None Reported Past Surgical History: Cholecystectomy, Orthopedic Surgery, Tonsillectomy Additional Past Surgical History / Comment(s): Anal fistula repair 2007, Lipoma removed right forearm, Colonoscopy, ORIF left hand Past Anesthesia/Blood Transfusion Reactions: No Reported Reaction Past Psychological History: No Psychological Hx Reported Smoking Status: Never smoker Past Alcohol Use History: None Reported Past Drug Use History: None Reported - Past Family History Mother Family Medical History: No Reported History Medications and Allergies Home Medications Medication Instructions Recorded Confirmed Type Cholecalciferol [Vitamin D3 (25 3,000 unit PO DAILY 02/19/20 02/20/20 History Mcg = 1000 Iu)] Fish Oil/Dha/Epa [Fish Oil 1,200 1 each PO DAILY 02/19/20 02/20/20 History mg Fish Oil] Multivitamins, Thera [Multivitamin 1 tab PO DAILY 02/19/20 02/20/20 History (formulary)] Rivaroxaban [Xarelto] 20 mg PO DAILY 02/19/20 02/20/20 History Tamsulosin [Flomax] 0.4 mg PO 1700 02/19/20 02/20/20 History HYDROcodone/APAP 7.5-325MG [[place] 1 - 2 each PO Q6HR PRN #56 tab 02/21/20 Rx 7.5-325] Allergies Allergy/AdvReac Type Severity Reaction Status Date / Time No Known Allergies Allergy Verified 02/20/20 11:36 Physical Exam Vitals: Vital Signs Temp Pulse Pulse Resp BP BP Pulse Ox 02/21/20 08:00 60 16 02/21/20 07:00 98.0 F 60 16 122/72 94 L 02/21/20 04:00 55 L 15 02/21/20 00:43 97.5 F L 55 L 15 118/66 93 L 02/21/20 00:00 17 02/20/20 23:00 95 02/20/20 20:00 64 18 02/20/20 17:45 50 L 18 109/68 93 L 02/20/20 17:00 97.8 F 57 L 18 110/64 95 02/20/20 15:45 70 16 127/61 98 02/20/20 15:30 63 16 125/59 98 02/20/20 15:16 63 16 149/69 98 02/20/20 15:00 67 16 140/72 96 02/20/20 14:42 97 F L 68 14 135/68 91 L 02/20/20 12:33 64 16 112/76 94 L 02/20/20 11:41 98.0 F 76 16 156/79 95 Intake and Output 02/20/20 02/21/20 02/21/20 22:59 06:59 14:59 Intake Total 540 1120 Output Total 1999 Balance 540 -880 Intake: IV 300 Intake, IV Titration 900 Amount Lactated Ringers 1,000 ml 850 @ 75 mls/hr IV .[id number] [facility] Rx#:[id number] ceFAZolin 2 gm In Sodium 50 Chloride 0.9% 50 ml @ 100 mls/hr IVPB ONCE ONE Rx# :[id number] Oral 240 220 Output: Urine 1999 Other: Voiding Method Urinal Urinal Urinal # Voids 1 Weight 106.594 kg Results CBC & Chem 7: 02/21/20 07:59 Labs: Abnormal Lab Results - Last 24 Hours (Table) 02/21/20 Range/Units 07:59 WBC 12.9 H (3.8-10.6) k/uL Neutrophils # 10.1 H (1.3-7.7) k/uL
[2020-02-22] MEDS ORDERED: MULTIVITAMINS, THERA 1 EACH TAB PO SCH (12:00)
== END 2020-02-21 12:33 | disposition home health service (06) ==
LOC: OR 11:13 → 4SSUR 15:45 → OR 02-21 12:33
PROVIDERS: ATTEND Orthopaedic Surgery Sports Medicine
DX: M17.12 Unilateral primary osteoarthritis, left knee (principal); M21.162 Varus deformity, not elsewhere classified, left knee; I27.82 Chronic pulmonary embolism; N40.0 Benign prostatic hyperplasia without lower urinary tract symptoms; H91.90 Unspecified hearing loss, unspecified ear; D72.829 Elevated white blood cell count, unspecified; E07.9 Disorder of thyroid, unspecified; Z97.3 Presence of spectacles and contact lenses; Z90.49 Acquired absence of other specified parts of digestive tract; Z98.890 Other specified postprocedural states; Z79.01 Long term (current) use of anticoagulants; Z79.899 Other long term (current) drug therapy; Z85.828 Personal history of other malignant neoplasm of skin; Z82.49 Family history of ischemic heart disease and other diseases of the circulatory system
CPT/HCPCS: 97161; 64448; 76942; 85025; 88300; 73560; 27447; C1776; C1713; J2250; J0171; J1100; J2710; J2270; J0690 ×3; J2405; J2001; J3010; J1885; J2795 ×2; J0330; J2704; J0735; J1170

== ENCOUNTER → 2020-08-22 | Outpatient (CLI) | payer MEDICARE ==
--- NOTE | 2020-08-22 10:57 | US ---
EXAMINATION TYPE: US thyroid st tissue head/neck DATE OF EXAM: 08/22/2020 COMPARISON: US August 14, 2019 and older studies. CLINICAL HISTORY: E04.9 nontoxic goiter. No thyroid medication per patient. GLAND SIZE: Right Lobe: 5.3 x 1.8 x 2.2 cm Overall Parenchyma: homogenous Left Lobe: 5.3 x 1.4 x 1.9 cm Overall Parenchyma: homogeneous Isthmus Thickness: 0.5 cm NODULES RIGHT: # of nodules measured on right: 2 1. 0.7 X 0.7 x 0.4 cm spongiform, hypoechoic nodule, which is wider than tall, with ill-defined mar gins, without echogenic foci. Prior size: 0.6 x 0.5 x 0.4 cm 2. 0.5 X 0.6 x 0.4 cm solid or almost completely solid, isoechoic nodule located medially, which is wider than tall, with ill-defined margins, without echogenic foci. (not previously seen) LEFT: # of nodules measured on left: 2 largest of multiple small nodules 1. 0.6 X 0.5 x 0.4 cm mixed cystic and solid, hypoechoic nodule at upper mid pole, which is wider t torres tall, with smooth margins, with echogenic foci. Prior size: 0.4 x0.5 x 0.4 cm 2. 0.4 X 0.3 x 0.3 cm cystic or almost completely cystic, hypoechoic nodule at lower pole, which is wide as is tall, with smooth margins, with echogenic foci. Prior size: 0.3 x 0.6 x 0.5 cm ISTHMUS: # of nodules measured in the isthmus: 1 1. 0.7 X 0.5 x 0.4 cm cystic or almost completely cystic, anechoic nodule, which is wider than tall , with smooth margins and noted inferiorly, without echogenic foci. (none previously seen) Bilateral neck scanned: no evidence of lymphadenopathy. Fairly homogeneous normal-sized thyroid with scattered stable bilateral subcentimeter nodules as deta iled above. IMPRESSION: As above. No worrisome greater than 1 cm nodules identified.
== END | disposition home or self-care (01) ==
LOC: RADUSWWP 09:28
PROVIDERS: ATTEND Family Medicine
DX: E04.2 Nontoxic multinodular goiter (principal)
CPT/HCPCS: 76536

== ENCOUNTER → 2021-02-24 | Outpatient (CLI) | payer MEDICARE ==
--- NOTE | 2021-02-25 07:14 | US ---
EXAMINATION TYPE: US thyroid st tissue head/neck DATE OF EXAM: 02/24/2021 COMPARISON: US August 22, 2020 CLINICAL HISTORY: 6 MO F/U; E04.9 nontoxic goiter. Followup thyroid nodules GLAND SIZE: Right Lobe: 4.1 x 1.7 x 3.3 cm Overall Parenchyma: homogenous Left Lobe: 3.8 x 1.3 x 2.0 cm Overall Parenchyma: homogeneous Isthmus Thickness: 0.5 cm NODULES RIGHT: # of nodules measured on right: 2 1. 0.8 X 0.6 x 0.5 cm, mid pole, spongiform, hypoechoic nodule, which is wider than tall, with ill- defined margins, without echogenic foci. Prior size: 0.7 x 0.4 x 0.7 cm 2. 0.7 X 0.6 x 0.4 cm, lower pole, solid or almost completely solid, isoechoic nodule, which is wid er than tall, with smooth margins, without echogenic foci. Prior size: 0.5 x 0.4 x 0.6 cm LEFT: # of nodules measured on left: 2 largest of multiple smaller cystic nodules 1. 0.5 X 0.4 x 0.6 cm, mid pole, mixed cystic and solid, hypoechoic nodule, which is taller than wi de, with smooth margins, with echogenic foci. Prior size: 0.6 x 0.4 x 0.5 cm 2. 0.4 X 0.3 x 0.3 cm, lower , cystic or almost completely cystic, anechoic nodule, which is wide as is tall, with smooth margins, without echogenic foci. Prior size: 0.4 x 0.3 x 0.3 cm ISTHMUS: # of nodules measured in the isthmus: 1 1. 0.6 X 0.5 x 0.4 cm cystic, anechoic nodule, which is wider than tall, with smooth margins, witho ut echogenic foci. Prior size: 0.7 x 0.5 x 0.4 cm Bilateral neck scanned: no evidence of lymphadenopathy. Redemonstration of homogeneous normal-sized thyroid with multiple small stable subcentimeter nodules. IMPRESSION: As above. No new suspicious or enlarging nodules.
== END | disposition home or self-care (01) ==
LOC: RADUSWWP 15:23
PROVIDERS: ATTEND Family Medicine
DX: E04.2 Nontoxic multinodular goiter (principal)
CPT/HCPCS: 76536

== ENCOUNTER → 2021-08-18 | Outpatient (CLI) | payer MEDICARE ==
--- NOTE | 2021-08-19 07:46 | US ---
EXAMINATION TYPE: US thyroid st tissue head/neck DATE OF EXAM: 08/18/2021 COMPARISON: CLINICAL HISTORY: E04.9 Nontoxic goiter, unspecified. 6 month follow up. Not on thyroid meds. GLAND SIZE: Right Lobe: 4.5 x 1.8 x 2.2 cm Overall Parenchyma: homogenous Left Lobe: 4.6 x 1.6 x 2.1 cm Overall Parenchyma: homogeneous Isthmus Thickness: 0.3 cm NODULES RIGHT: # of nodules measured on right: 2 1. 0.6 X 0.5 x 0.5 cm, mid , spongiform, hypoechoic nodule, which is wider as tall, with smooth mar gins, without echogenic foci. TR 3 Prior size: 0.8 x 0.6 x 0.5 cm 2. 0.6 X 0.6 x 0.5 cm, lower , solid or almost completely solid, isoechoic nodule vs prominent thyr oid tissue, which is wider than tall, with smooth margins, without echogenic foci. Prior size: 0.7 x 0.6 x 0.4 cm LEFT: # of nodules measured on left: 1 1. Previous nodule not seen 2. 0.3 X 0.3 x 0.2 cm, lower mid, cystic or almost completely cystic, anechoic nodule, which is wi radha than tall, with smooth margins, without echogenic foci. Prior size: 0.4 x 0.3 x 0.3 cm ISTHMUS: # of nodules measured in the isthmus: 1 1. 0.6 X 0.6 x 0.4 cm cystic or almost completely cystic, hypoechoic nodule, which is wider than ta ll, with smooth margins, without echogenic foci. Prior size: 0.6 x 0.5 x 0.4 cm Bilateral neck scanned, no evidence of lymphadenopathy. IMPRESSION: 1. Mildly suspicious nodule right lobe thyroid. Additional nodules are present bilaterally. 2017 ACR TI-RADS LEVEL: TR-RADS 3 - Mildly Suspicious: Follow if > 1.5 cm, FNA if > 2.5 cm *Highest TI-RADS level nodule reported
== END | disposition home or self-care (01) ==
LOC: RADUSWWP 15:28
PROVIDERS: ATTEND Family Medicine
DX: E04.2 Nontoxic multinodular goiter (principal)
CPT/HCPCS: 76536

== ENCOUNTER → 2022-02-24 | Outpatient (CLI) | payer MEDICARE ==
--- NOTE | 2022-02-24 13:47 | US ---
EXAMINATION TYPE: US venous doppler duplex LE LT DATE OF EXAM: 02/24/2022 1:08 PM COMPARISON: NONE CLINICAL HISTORY: I80.9 PHLEBITIS AND THROMBOPHLEBITIS. Left foot swelling following break 3 months a go, history of DVT, patient on blood thinners SIDE PERFORMED: Left TECHNIQUE: The lower extremity deep venous system is examined utilizing real time linear array sonog jeb with graded compression, doppler sonography and color-flow sonography. VESSELS IMAGED: Common Femoral Vein Deep Femoral Vein Greater Saphenous Vein * Femoral Vein Popliteal Vein Small Saphenous Vein * Proximal Calf Veins (* superficial vessels) Left Leg: Appears negative for DVT IMPRESSION: No evidence for DVT at this time.
== END | disposition home or self-care (01) ==
LOC: RADUSWWP 12:37
PROVIDERS: ATTEND Podiatrist
DX: I80.9 Phlebitis and thrombophlebitis of unspecified site (principal)

== ENCOUNTER 2022-07-28 06:13 | Emergency (ER) | payer MEDICARE ==
[2022-07-28] MEDS ORDERED: SODIUM CHLORIDE 0.9% 500 ML 500 ML IV STA (06:29)
[2022-07-28] MEDS ORDERED: SODIUM CHLORIDE 0.9% 1,000 ML IV STA (06:29)
--- NOTE | 2022-07-28 06:35 | ED ---
Weakness HPI - General Chief complaint: Weakness Stated complaint: Weakness Time Seen by Provider: 07/28/22 06:14 Source: patient, EMS, RN notes reviewed Mode of arrival: EMS Limitations: no limitations - History of Present Illness Initial comments: This a 72-year-old male presents emergency Department chief complaint of generalized weakness. Patient states he has not felt well over the last 3-4 days. Patient is a positive COVID-19 home yesterday. Patient has been complaining of leg cramping, feeling lightheaded and dizzy. Patient states she's not been eating and drinking as much. Patient reports fever chills cough congestion. Patient states he felt unsteady getting up and go to the bathroom in which she called EMS at that time. Denies chest pain or shortness breath headache. Patient is in the day takes Flomax and Xarelto for history of PE. Patient has not missed any doses. Denies any leg swelling or leg discoloration. Patient does not report any recent Tylenol Motrin. - Related Data Home Medications Medication Instructions Recorded Confirmed Cholecalciferol [Vitamin D3 (25 3,000 unit PO DAILY 02/19/20 02/20/20 Mcg = 1000 Iu)] Fish Oil/Dha/Epa [Fish Oil 1,200 1 each PO DAILY 02/19/20 02/20/20 mg Fish Oil] Multivitamins, Thera [Multivitamin 1 tab PO DAILY 02/19/20 02/20/20 (formulary)] Rivaroxaban [Xarelto] 20 mg PO DAILY 02/19/20 02/20/20 Tamsulosin [Flomax] 0.4 mg PO 1700 02/19/20 02/20/20 Previous Rx's Medication Instructions Recorded HYDROcodone/APAP 7.5-325MG [[place] 1 - 2 each PO Q6HR PRN #56 tab 02/21/20 7.5-325] Allergies Allergy/AdvReac Type Severity Reaction Status Date / Time No Known Allergies Allergy Verified 07/28/22 06:16 Review of Systems ROS Statement: Those systems with pertinent positive or pertinent negative responses have been documented in the HPI. ROS Other: All systems not noted in ROS Statement are negative. Past Medical History Past Medical History: Cancer, Pulmonary Embolus (PE), Vascular Disorder Additional Past Medical History / Comment(s): Heart murmur, Bronchitis, Chronic cough, Pulmonary embolus, Anal fistula, Hemorrhoids, Cataract, Glasses, Hearing loss, Scars, Arthritis, Wrist fracture 2006, Numbness/Tingling, Blood Clots, Thyroid. nodule, Skin CA 2007 & 2011 History of Any Multi-Drug Resistant Organisms: None Reported Past Surgical History: Cholecystectomy, Orthopedic Surgery, Tonsillectomy Additional Past Surgical History / Comment(s): Anal fistula repari 2008, Lipoma removed righ hand, Colonoscopy, ORIF left hand Past Anesthesia/Blood Transfusion Reactions: No Reported Reaction Past Psychological History: No Psychological Hx Reported General Exam Limitations: no limitations General appearance: alert, in no apparent distress Head exam: Present: atraumatic, normocephalic, normal inspection Eye exam: Present: normal appearance, PERRL, EOMI. Absent: scleral icterus, conjunctival injection, periorbital swelling ENT exam: Present: normal exam, mucous membranes moist Neck exam: Present: normal inspection, full ROM. Absent: tenderness, meningismus, lymphadenopathy Respiratory exam: Present: normal lung sounds bilaterally. Absent: respiratory distress, wheezes, rales, rhonchi, stridor Cardiovascular Exam: Present: regular rate, normal rhythm, normal heart sounds. Absent: systolic murmur, diastolic murmur, rubs, gallop, clicks GI/Abdominal exam: Present: soft, normal bowel sounds. Absent: distended, tenderness, guarding, rebound, rigid Back exam: Absent: CVA tenderness (R), CVA tenderness (L) Neurological exam: Present: alert, oriented X3, CN II-XII intact Skin exam: Present: warm, dry, intact, normal color. 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 - EKG Results: EKG: interpreted by CYRUS Medical Decision Making - Medical Decision Making 72-year-old presented for his weakness social: 19. Patient feels greatly improved after IV fluids labs unremarkable chest x-ray unremarkable. Patient discharged in stable condition. - Lab Data Result diagrams: 07/28/22 06:50 07/28/22 06:50 Lab Results 07/28/22 07/28/22 Range/Units 06:50 06:50 WBC 8.0 (3.8-10.6) k/uL RBC 4.70 (4.30-5.90) m/uL Hgb 14.7 (13.0-17.5) gm/dL Hct 42.9 (39.0-53.0) % MCV 91.2 (80.0-100.0) fL MCH 31.2 (25.0-35.0) pg MCHC 34.2 (31.0-37.0) g/dL RDW 12.5 (11.5-15.5) % Plt Count 248 (150-450) k/uL MPV 7.6 Neutrophils % 77 % Lymphocytes % 10 % Monocytes % 8 % Eosinophils % 1 % Basophils % 1 % Neutrophils # 6.2 (1.3-7.7) k/uL Lymphocytes # 0.8 L (1.0-4.8) k/uL Monocytes # 0.6 (0-1.0) k/uL Eosinophils # 0.0 (0-0.7) k/uL Basophils # 0.1 (0-0.2) k/uL Sodium 133 L (137-145) mmol/L Potassium 4.0 (3.5-5.1) mmol/L Chloride 101 (98-107) mmol/L Carbon Dioxide 26 (22-30) mmol/L Anion Gap 6 mmol/L BUN 18 (9-20) mg/dL Creatinine 0.93 (0.66-1.25) mg/dL Est GFR (CKD-EPI)AfAm >90 (>60 ml/min/1.73 sqM) Est GFR (CKD-EPI)NonAf 81 (>60 ml/min/1.73 sqM) Glucose 113 H (74-99) mg/dL Calcium 8.4 (8.4-10.2) mg/dL Magnesium 2.1 (1.6-2.3) mg/dL Total Bilirubin 0.7 (0.2-1.3) mg/dL AST 28 (17-59) U/L ALT 21 (4-49) U/L Alkaline Phosphatase 68 (38-126) U/L Total Protein 6.4 (6.3-8.2) g/dL Albumin 3.7 (3.5-5.0) g/dL Disposition Clinical Impression: COVID-19 Disposition: HOME SELF-CARE Condition: Stable Instructions (If sedation given, give patient instructions): COVID-19 (Coronavirus Disease 2019) (ED) Additional Instructions: Please return to the Emergency Department if symptoms worsen or any other concerns. Is patient prescribed a controlled substance at d/c from ED?: No Referrals: Manuel Becerra DO [Primary Care Provider] - 1-2 days Time of Disposition: 08:19
--- NOTE | 2022-07-28 07:01 | XR ---
EXAMINATION TYPE: XR chest 2V DATE OF EXAM: 07/28/2022 COMPARISON: Chest x-ray May 05, 2014 HISTORY: Weakness. TECHNIQUE: Frontal and lateral views of the chest are obtained. FINDINGS: There is some chronic parenchymal changes bilaterally without suspicious focal air space o pacity, pleural effusion, or pneumothorax seen. The cardiac silhouette size is upper limits of jose l. Cholecystectomy clips are redemonstrated. Multilevel spurring in thoracic spine is again seen.. IMPRESSION: Chronic changes without acute pulmonary process.
[2022-07-28 07:05] LABS: Basophils # (A) 0.1 k/uL (0-0.2); Basophils % (A) 1 %; Eosinophils % (A) 1 %; HCT 42.9 % (39.0-53.0); HGB 14.7 gm/dL (13.0-17.5); Lymphocytes # (A) 0.8 k/uL (1.0-4.8); Lymphocytes % (A) 10 %; MCH 31.2 pg (25.0-35.0); MCHC 34.2 g/dL (31.0-37.0); MCV 91.2 fL (80.0-100.0); Mean Platelet Volume 7.6; Monocytes # (A) 0.6 k/uL (0-1.0); Monocytes % (A) 8 %; Neutrophils # (A) 6.2 k/uL (1.3-7.7); Neutrophils % (A) 77 %; Platelet Count 248 k/uL (150-450); RDW 12.5 % (11.5-15.5)
[2022-07-28 07:18] LABS: ALT 21 U/L (4-49); AST 28 U/L (17-59); African American GFR (CKD) >90 (>60 ml/min/1.73 sqM); Albumin 3.7 g/dL (3.5-5.0); Alkaline Phosphatase 68 U/L (38-126); Anion Gap 6 mmol/L; Blood Urea Nitrogen 18 mg/dL (9-20); Calcium 8.4 mg/dL (8.4-10.2); Carbon Dioxide 26 mmol/L (22-30); Chloride 101 mmol/L (98-107); Glucose 113 mg/dL (74-99); Magnesium 2.1 mg/dL (1.6-2.3); Non-African American GFR(CKD) 81 (>60 ml/min/1.73 sqM); Sodium 133 mmol/L (137-145); Total Bilirubin 0.7 mg/dL (0.2-1.3); Total Protein 6.4 g/dL (6.3-8.2)
[2022-07-28 08:29] VITALS: BP 133/79; PULSE 62; RESP 18
[2022-07-28 09:05] VITALS: TEMP 97.6
[2022-07-28 09:55] LABS: Appearance,Urine Clear (Clear); Bilirubin,Urine Negative (Negative); Blood,Urine Negative (Negative); Color,Urine Colorless; Glucose,Urine (UA) Negative (Negative); Ketones,Urine Negative (Negative); Leukocyte Esterase,Urine Negative (Negative); Nitrite,Urine Negative (Negative); Protein,Urine Negative (Negative); Specific Gravity,Urine 1.007 (1.001-1.035); Urobilinogen,Urine <2.0 mg/dL (<2.0)
== END 2022-07-28 09:05 | disposition home or self-care (01) ==
LOC: EC 06:13
DX: U07.1 COVID-19 (principal); C80.1 Malignant (primary) neoplasm, unspecified; I26.99 Other pulmonary embolism without acute cor pulmonale; Z79.899 Other long term (current) drug therapy
CPT/HCPCS: 36415; 71046; 80053; 81003; 83735; 85025; 93005; 96360; 96361; 99285

== ENCOUNTER → 2022-08-26 | Outpatient (CLI) | payer MEDICARE ==
--- NOTE | 2022-08-27 06:44 | US ---
EXAMINATION TYPE: US thyroid st tissue head/neck DATE OF EXAM: 08/26/2022 COMPARISON: 08/18/21 CLINICAL HISTORY: E04.9 NONTOXIC GOITER, UNSPECIFIED. Multiple nodules GLAND SIZE: Right Lobe: 4.5 x 1.7 x 2.0 cm Overall Parenchyma: heterogenous Left Lobe: 5.3 x 2.0 x 1.9 cm Overall Parenchyma: heterogeneous Isthmus Thickness: 0.47 cm NODULES RIGHT: # of nodules measured on right: 1 1. 0.7 X 0.8 x 0.5 cm, lower medial, solid or almost completely solid, isoechoic nodule, which is w ider than tall, with ill-defined margins, without echogenic foci. Prior size: 0.6 x 0.5 x 0.6 cm LEFT: # of nodules measured on left: 1 1. 0.4 X 0.4 x 0.4 cm, mid mid, cystic or almost completely cystic, hypoechoic nodule, which is wid er than tall, with smooth margins, without echogenic foci. Prior size: 0.3 x 0.2 x 0.3 cm ISTHMUS: # of nodules measured in the isthmus: 0 Bilateral neck scanned, no evidence of lymphadenopathy. Heterogeneous normal-sized thyroid with stable small bilateral single nodules. IMPRESSION: As above
== END | disposition home or self-care (01) ==
LOC: RADUSWWP 16:46
PROVIDERS: ATTEND Family Medicine
DX: E04.2 Nontoxic multinodular goiter (principal)
CPT/HCPCS: 76536

== ENCOUNTER → 2023-09-13 | Outpatient (CLI) | payer MEDICARE ==
--- NOTE | 2023-09-13 17:46 | US ---
EXAMINATION TYPE: US thyroid st tissue head/neck DATE OF EXAM: 09/13/2023 COMPARISON: NONE CLINICAL INDICATION: Male, 73 years old with history of M81.0 AGE RELATED OSTEOPOROSIS; GLAND SIZE: Right Lobe: 4.3 x 2.0 x 2.2 cm Overall Parenchyma: homogeneous Left Lobe: 5.3 x 2.0 x 1.3 cm Overall Parenchyma: homogeneous Isthmus Thickness: 0.5 cm NODULES RIGHT: # of nodules measured on right: 1 1. 0.9 X 0.5 x 0.6 cm, mid lateral, solid or almost completely solid, vague isoechoic solid TR3 nod ule, which is wider than tall, with smooth margins, without echogenic foci. Prior size: 0.7 x 0.8 x 0.5 cm LEFT: # of nodules measured on left: 0 1. Not seen on this exam ISTHMUS: # of nodules measured in the isthmus: 0 Bilateral neck scanned, no evidence of lymphadenopathy. IMPRESSION: Borderline sized thyroid gland with a solitary vague TR3 nodule on the right measuring 9 mm, fairly s table compared to 8 mm, previously. 2017 ACR TI-RADS LEVEL: TR-RADS 3 - Mildly Suspicious: Follow if > 1.5 cm, FNA if > 2.5 cm *Highest TI-RADS level nodule reported
== END | disposition home or self-care (01) ==
LOC: RADUSWWP 15:24
PROVIDERS: ATTEND Family Medicine
DX: E04.1 Nontoxic single thyroid nodule (principal); M81.0 Age-related osteoporosis without current pathological fracture
CPT/HCPCS: 76536

== ENCOUNTER → 2024-11-29 | Outpatient (CLI) | payer MEDICARE ==
--- NOTE | 2024-11-29 11:05 | US ---
EXAMINATION TYPE: US thyroid st tissue head/neck DATE OF EXAM: 11/29/2024 COMPARISON: US 09/13/2023 CLINICAL INDICATION: Male, 74 years old with history of E04.9 NONTOXIC GOITER; Goiter TECHNIQUE: Grayscale and color Doppler imaging of the thyroid gland. FINDINGS: GLAND SIZE: Right Lobe: 4.8 x 1.8 x 1.9 cm Overall Parenchyma: homogeneous Left Lobe: 5.5 x 1.5 x 1.8 cm Overall Parenchyma: homogeneous Isthmus Thickness: 0.3 cm NODULES RIGHT: # of nodules measured on right: 1. *Additional less than 5 mm nodule imaged at mid. 1. 0.9 X 0.7 x 0.6 cm, mid mid, Prior size: 0.9 x 0.5 x 0.6 cm TIRADS Score: 4 TIRADS Category 4: Composition: Solid or almost completely solid (2 points). Echogenicity: Hypoechoic (2 points). Shape: Wider than tall (0 points). Margin: Smooth (0 points). Echogenic foci: None or large comet-tail artifacts (0 points) Recommendation: If >1.5cm: FNA; If >1cm: Follow up at 1,2, 3,5 years LEFT: # of nodules measured on left: *Less than 5 mm nodule seen medially. ISTHMUS: # of nodules measured in the isthmus: 0 Bilateral neck scanned, Hypoechoic area/lymph node with hyperechoic center seen right neck: 1.4 x 1.3 x 0.7 cm, cortex jay ures 4 mm. Hypoechoic area seen right neck: 0.8 x 1.0 x 0.6 cm. Hypoechoic area seen left neck: 0.8 x 1.0 x 0.7 cm. IMPRESSION: 1. Thyroid nodule that meet criteria for follow-up in one year. 2. Nonenlarged lymph nodes by CT criteria. If there is concern for neck lymphadenopathy consider CT neck with IV contrast. [facility], , 11/29/2024 11:02 AM
== END | disposition home or self-care (01) ==
LOC: RADUSWWP 10:15
PROVIDERS: ATTEND Family Medicine
DX: E04.1 Nontoxic single thyroid nodule (principal)
CPT/HCPCS: 76536